=== PATIENT | female | born 1965 | race Caucasian/White ===

== ENCOUNTER 2017-08-05 09:15 | Inpatient (IN) | payer OTHER ==
[2017-08-05 12:10] VITALS: BMI 32.8
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
[2017-08-11] MEDS ORDERED: CEFAZOLIN/Water 2 GM/20 ML SYRINGE ONE (07:08)
[2017-08-11] MEDS ORDERED: Tranexamic Acid 1,000 MG/100 ML BAG ONE ×2 (07:08→13:08)
[2017-08-11] MEDS ORDERED: Vancomycin HCl 1.5 GM in Sodium Chloride 0.9% 250 ML 300 ML IVPB ONE (07:30)
[2017-08-11] MEDS ORDERED: Fentanyl 100 MCG/2 ML VIAL ONE (07:34)
[2017-08-11] MEDS ORDERED: Midazolam HCl 2 mg/2 ml Vial ONE ×2 (07:34→10:36)
[2017-08-11] MEDS ORDERED: HYDROcodone/Acetaminophen 5/325 mg Tablet PO PRN ×2 (08:30)
[2017-08-11] MEDS ORDERED: Fentanyl/Bupivacaine 250 ML in Premix Bag 1 BAG EPIDURAL SCH (08:30)
[2017-08-11] MEDS ORDERED: diphenhydrAMINE 25 MG CAP PO PRN ×2 (08:30→09:51)
[2017-08-11] MEDS ORDERED: Naloxone HCl 0.4 mg/ml Vial IV PRN (08:30)
[2017-08-11] MEDS ORDERED: Promethazine HCl 25 MG/ML VIAL IM PRN ×2 (08:30→11:17)
[2017-08-11] MEDS ORDERED: diphenhydrAMINE 50 MG/ML VIAL IM PRN (08:30)
[2017-08-11] MEDS ORDERED: Naloxone HCl 0.4 mg/ml Vial IVP PRN (08:30)
[2017-08-11] MEDS ORDERED: Bupivacaine 0.25% 10 ML VIAL EPIDURAL PRN (08:30)
[2017-08-11] MEDS ORDERED: Eucerin (Mineral Oil/Petrolatum,White) 30 gm Jar TOP PRN (08:30)
[2017-08-11] MEDS ORDERED: Zolpidem Tartrate 5 MG TAB PO PRN ×2 (08:30→09:51)
[2017-08-11] MEDS ORDERED: Promethazine HCl 25 MG SUPP PR PRN (08:30)
[2017-08-11] MEDS ORDERED: Ondansetron HCl/PF 4 MG/2 ML Vial IVP PRN ×3 (08:30→11:17)
[2017-08-11] MEDS ORDERED: traMADol HCl 50 MG TAB PO PRN ×2 (08:30)
[2017-08-11] MEDS ORDERED: diphenhydrAMINE 50 MG/ML VIAL IVP PRN (08:30)
[2017-08-11] MEDS ORDERED: Acetaminophen 325 MG TAB PO PRN (09:51)
[2017-08-11] MEDS ORDERED: Promethazine HCl 25 MG/ML VIAL SLOW IVP PRN ×2 (09:51→11:17)
[2017-08-11] MEDS ORDERED: Tranexamic Acid 1,000 MG in Sodium Chloride 0.9% 100 ML IVPB SCH ×2 (09:51→12:45)
[2017-08-11] MEDS ORDERED: Ropivacaine 0.2% HCl/PF 20 ML ONE (10:46)
[2017-08-11] MEDS ORDERED: Multivitamin W/ Minerals 1 TAB PO SCH (11:45)
[2017-08-11] MEDS ORDERED: Senokot S 8.6-50 MG TAB PO SCH (12:00)
[2017-08-11] MEDS ORDERED: Thyroid 30 MG TAB PO SCH (12:00)
[2017-08-11] MEDS ORDERED: Liothyronine Sodium 25 MCG TAB PO SCH (12:00)
[2017-08-11] MEDS ORDERED: Calcium Carbonate + Vit D 1 TAB PO SCH (12:00)
[2017-08-11] MEDS ORDERED: Ferrous Gluconate 324 MG TAB PO SCH (12:00)
[2017-08-11] MEDS ORDERED: Meperidine HCl/PF 25 MG/ML VIAL ONE (12:41)
--- NOTE | 2017-08-11 13:20 | OP ---
DATE OF PROCEDURE: 08/11/2017 SURGEON: Karan Doherty M.D. FOUNDRY WORKER GENERAL: Joel Ramirez PA-C. ANESTHESIA: General plus epidural. PREOPERATIVE DIAGNOSIS: Posttraumatic degenerative arthritis, right hip. POSTOPERATIVE DIAGNOSIS: Posttraumatic degenerative arthritis right hip. PROCEDURES: Right total hip replacement with uncemented Kashif Trident PSL acetabular component 52 mm with X3 polyethylene insert and uncemented Kashif Accolade femoral stem size 3.5 with a standard neck length 36 mm Delta ceramic femoral head. NARRATIVE REPORT: After satisfactory anesthesia was induced in supine position, the patient was plac ed in lateral decubitus position and this position held with hip positioning device. Sequential comp ression device was used on the non-operative leg throughout the procedure. The patient was prepped a nd draped in the routine fashion. The hip was approached through a lateral curvilinear incision cent ered over the greater trochanter and carried down through subcutaneous tissues, and bleeding points c ontrolled with Bovie cautery. IT band and gluteal fascia were split in line with the skin incision. Direct lateral approach to the hip joint was accomplished by dividing the anterior third of the glut eus medius minimus tendons with Bovie cautery and reflecting this as a single flap anteriorly and med ially. Anterior capsulectomy was performed and the hip dislocated anteriorly. There was marked dege nerative arthritis of the hip with large areas of exposed bone and partial collapse of femoral head. The femoral neck was osteotomized with an oscillating saw using a trial prosthesis as a guide. Acet abulum was exposed and cleaned of all soft tissue debris and rim osteophytes. The acetabulum was the n reamed down to bleeding subchondral bone in sequence with power reamers down to a total of 52 mm. It was felt that a 52 mm Trident PSL outer shell could be placed in a press fit fashion. The permane nt outer shell was hammered into position. There was good fit and stability of the shell and the per manent X3 polyethylene insert was then snapped into position and the proximal femur exposed. It was opened with a box osteotome and then rasped in sequence to accept an Accolade 3.5 femoral rasp. Tria l reduction with 132 degree neck angle and standard neck length 36 mm head gave appropriate size, fit , and stability. The hip was dislocated anteriorly and the trial components removed. The permanent Accolade 3.5 stem was then hammered in position. There was good fit and stability. The permanent st andard neck length 36 mm Delta ceramic head was then placed on the trunnion and the hip again reduced and found to be stable. The hip was copiously irrigated with pulsatile lavage. The abductors were repaired with interrupted #2 Vicryl. IT band was closed with interrupted #2 Vicryl and a running #2 Quill. Subcutaneous tissue was closed with running 0 Quill suture and the skin closed with running s ubcuticular 2-0 Monoderm and SurgiSeal skin adhesive. A sterile dressing was applied and the patient turned to the supine position and a pillow placed between her legs. Sequential compression device w as applied to her operated leg and she was awakened and taken to recovery room in stable condition. There were no apparent intraoperative complications. The estimated blood loss was 400 mL.
[2017-08-11] MEDS: Sodium Chloride 0.9% 1,000 ML IV SCH (13:41)
[2017-08-11] MEDS: Ketorolac Tromethamine 30 MG/ML VIAL IVP SCH ×3 (14:03→18:28)
[2017-08-11] MEDS ORDERED: FLU VACC QS2017-18 36 mo. & older 0.5 ML SYRINGE IM ONE (14:45)
--- NOTE | 2017-08-11 14:50 | RAD ---
RIGHT HIP TWO PORTABLE VIEWS: History: Post op evaluation. IMPRESSION: Hip prosthesis has been placed. Components appear in adequate position and alignment. POS: [facility]
[2017-08-11] MEDS: CEFAZOLIN/Water 2 GM/20 ML SYRINGE SLOW IVP SCH ×2 (15:22→21:54)
[2017-08-11] MEDS ORDERED: Lidocaine 1% PF 5 ML VIAL ONE (15:46)
[2017-08-11] MEDS ORDERED: Ketorolac Tromethamine 30 MG/ML VIAL ONE (15:46)
[2017-08-11] MEDS ORDERED: PHENYLEPHRINE-NS 100 MCG/ML 10 ML SYRINGE ONE (15:46)
[2017-08-11] MEDS ORDERED: PROPOFOL 200 MG/20 ML VIAL ONE (15:46)
[2017-08-11] MEDS ORDERED: Ondansetron HCl/PF 4 MG/2 ML Vial ONE (15:46)
[2017-08-11] MEDS ORDERED: Vancomycin HCl 1.5 GM in Sodium Chloride 0.9% 250 ML 300 ML IVPB SCH (19:30)
--- NOTE | 2017-08-11 21:32 | PDOC.PN ---
- Subjective Encounter Start Date: 08/11/17 Encounter Start Time: 19:30 Patient seen and examined. Consult for med mngt. Pain controlled. No CP/SOB - Objective MAR Reviewed: Yes Vital Signs & Weight: Vital Signs (12 hours) Temp Pulse Pulse Pulse Pulse Resp BP 08/11/17 19:50 98.8 F 104 H 18 08/11/17 18:22 108 H 98 95 88/57 L 08/11/17 16:30 97.6 F 95 16 08/11/17 14:28 97.9 F 80 18 08/11/17 13:50 97.9 F 80 16 BP BP BP Pulse Ox Pulse Ox Pulse Ox 08/11/17 19:50 95/61 18 L 08/11/17 18:22 103/63 103/65 99 99 08/11/17 16:30 94/65 08/11/17 14:28 08/11/17 13:50 104/72 Weight Weight 210 lb I&O: 08/10/17 08/11/17 08/12/17 06:59 06:59 06:59 Intake Total 550 Output Total 600 Balance -50 Result Diagrams: 08/13/17 05:17 Phys Exam - Physical Examination Constitutional: NAD Neck: no JVD Neurological: non-focal, moves all 4 limbs Psychiatric: normal affect, A&O x 3 Dx/Plan - Plan DVT proph w/SCDs IMPRESSION: 1. Hypothyroidism 2. s/p Gastric bypass 3. Chronic insomnia 4. Obesity BMI 32.9 PLAN: * Cont home thyroid meds * Cont to monitor * Thank you for this consultation. Will follow PRN Review of Systems - Review of Systems Respiratory: negative: Cough, Dry, Shortness of Breath, Hemoptysis, SOB with Excertion, Pleuritic Pain, Sputum, Wheezing Cardiovascular: negative: chest pain, palpitations, orthopnea, paroxysmal nocturnal dyspnea, edema, light headedness Gastrointestinal: negative: Nausea, Vomiting, Abdominal Pain, Diarrhea, Constipation, Melena, Hematochezia - Medications/Allergies Allergies/Adverse Reactions: Allergies Allergy/AdvReac Type Severity Reaction Status Date / Time codeine Allergy Verified 08/11/17 15:43 Medications: Current Medications Acetaminophen (Tylenol) 650 mg PO Q4H PRN PRN Reason: MUSA/ T > 101F; Mild Pain (1-3) Hydrocodone Bitart/Acetaminophen ([place] 10/325) 1 tab PO Q4H PRN PRN Reason: Moderate Pain (4-6) Hydrocodone Bitart/Acetaminophen ([place] 10/325) 2 tab PO Q4H PRN PRN Reason: Severe Pain (7-10) Aspirin (Aspirin Chewable) 81 mg PO BID [facility] Bupivacaine HCl (Marcaine) 5 ml EPIDURAL ONE PRN PRN Reason: UNCONTROLLED PAIN Stop: 08/14/17 08:31 Calcium/Vitamin D (Caltrate 600 + Vit D) 1 tab PO BID [facility] Cefazolin Sodium (Ancef) 2 gm SLOW IVP Q8HR [facility] Stop: 08/11/17 22:01 Last Admin: 08/11/17 15:22 Dose: 2 gm Diphenhydramine HCl (Benadryl) 25 mg PO Q3H PRN PRN Reason: Itching Diphenhydramine HCl (Benadryl) 25 mg IM Q3H PRN PRN Reason: Itching Diphenhydramine HCl (Benadryl) 25 mg IVP Q3H PRN PRN Reason: Itching Diphenhydramine HCl (Benadryl) 25 mg PO Q6H PRN PRN Reason: Itching Fentanyl (Sublimaze) 50 mcg SLOW IVP Q30MIN PRN PRN Reason: Moderate Pain (4-6) Fentanyl (Sublimaze) 100 mcg SLOW IVP Q1H PRN PRN Reason: Severe Pain (7-10) Ferrous Gluconate (Fergon) 324 mg PO BID [facility] Gabapentin (Neurontin) 150 mg PO BID [facility] Fentanyl Citrate 250 ml/ (Device) 250 mls @ 6 mls/hr EPIDURAL INF [facility] Sodium Chloride (Normal Saline 0.9%) 1,000 mls @ 100 mls/hr IV .Q10H [facility] Last Admin: 08/11/17 13:41 Dose: Not Given Iron/Minerals/Multivitamins (Theragran M) 1 tab PO DAILY [facility] Ketorolac Tromethamine (Toradol) 30 mg IVP Q6HR [facility] Stop: 08/13/17 06:01 Last Admin: 08/11/17 18:28 Dose: 30 mg Ketorolac Tromethamine (Toradol) 30 mg IVP Q8HR [facility] Stop: 08/13/17 14:01 Last Admin: 08/11/17 14:04 Dose: Not Given Liothyronine Sodium (Cytomel) 12.5 mcg PO DAILY [facility] Mineral Oil/White Petrolatum (Eucerin Cream) 0 gm TOP PRN PRN PRN Reason: Itching Naloxone HCl (Narcan) 0.2 mg IV Q5MIN PRN PRN Reason: RR <=8 OR OBTUNDED/UNAROUSABLE Naloxone HCl (Narcan) 0.1 mg IVP Q15MIN PRN PRN Reason: URINARY RETENTION Ondansetron HCl (Zofran) 4 mg IVP Q6H PRN PRN Reason: Nausea/Vomiting Ondansetron HCl (Zofran) 4 mg IVP Q6H PRN PRN Reason: Nausea/Vomiting Promethazine HCl (Phenergan) 12.5 mg IM Q4H PRN PRN Reason: Nausea Promethazine HCl (Phenergan Suppository) 25 mg [place] Q4H PRN PRN Reason: Nausea/Vomiting Promethazine HCl (Phenergan) 12.5 mg SLOW IVP Q4H PRN PRN Reason: Nausea/Vomiting Senna/Docusate Sodium (Senokot S) 2 tab PO BID [facility] Sodium Chloride (Flush - Normal Saline) 10 ml IVF PRN PRN PRN Reason: Saline Flush Thyroid ([place] Thyroid) 180 mg PO DAILY [facility] Thyroid ([place] Thyroid) 15 mg PO DAILY [facility] Tramadol HCl (Ultram) 50 mg PO Q6H PRN PRN Reason: Mild Pain 1-3 Tramadol HCl (Ultram) 100 mg PO Q6H PRN PRN Reason: Mild Pain (1-3) Zolpidem Tartrate (Ambien) 5 mg PO HSPRN PRN PRN Reason: Insomnia
[2017-08-11] MEDS: Senokot S 8.6-50 MG TAB PO SCH (21:52)
[2017-08-11] MEDS: Ferrous Gluconate 324 MG TAB PO SCH (21:53)
[2017-08-11] MEDS: Calcium Carbonate + Vit D 1 TAB PO SCH (21:53)
[2017-08-12] MEDS: Ketorolac Tromethamine 30 MG/ML VIAL IVP SCH ×8 (00:23→20:07)
[2017-08-12] MEDS: Sodium Chloride 0.9% 1,000 ML IV SCH ×3 (00:23→07:15)
[2017-08-12] MEDS: HYDROcodone/Acetaminophen 10/325 mg Tablet PO PRN ×3 (00:33→20:42)
[2017-08-12 05:32] LABS: Hemoglobin 9.5 g/dL (12.0-16.0); Mean Corpuscular HGB CONC 33.4 g/dL (32.0-36.0); Mean Corpuscular Hemoglobin 30.5 pg (27.0-31.0); Mean Corpuscular Volume 91.1 fl (81.0-99.0); Mean Platelet Volume 7.1 fL (7.4-10.4); Platelet Count 187 thou/uL (130-400); Red Blood Cell (RBC) Count 3.12 mill/uL (4.20-5.40)
[2017-08-12] MEDS: Liothyronine Sodium 25 MCG TAB PO SCH (06:48)
[2017-08-12] MEDS: Senokot S 8.6-50 MG TAB PO SCH ×2 (08:04→20:42)
[2017-08-12] MEDS: Calcium Carbonate + Vit D 1 TAB PO SCH ×2 (08:05→20:42)
[2017-08-12] MEDS: Multivitamin W/ Minerals 1 TAB PO SCH (08:19)
[2017-08-12] MEDS: Ferrous Gluconate 324 MG TAB PO SCH ×2 (08:19→20:42)
[2017-08-12] MEDS ORDERED: Thyroid 30 MG TAB PO SCH (09:00)
[2017-08-12] MEDS ORDERED: Bupivacaine 10 ML in Sodium Chloride 0.9% 90 ML EPIDURAL SCH (10:45)
[2017-08-12] MEDS ORDERED: Fentanyl 100 MCG/2 ML VIAL SLOW IVP PRN ×2 (23:59)
[2017-08-13] MEDS: Ketorolac Tromethamine 30 MG/ML VIAL IVP SCH ×4 (00:37→12:28)
[2017-08-13] MEDS: Sodium Chloride 0.9% 1,000 ML IV SCH ×3 (02:32→21:08)
[2017-08-13 05:50] LABS: Hemoglobin 8.9 g/dL (12.0-16.0); Mean Corpuscular HGB CONC 33.1 g/dL (32.0-36.0); Mean Corpuscular Hemoglobin 30.5 pg (27.0-31.0); Mean Corpuscular Volume 92.2 fl (81.0-99.0); Mean Platelet Volume 7.3 fL (7.4-10.4); Platelet Count 176 thou/uL (130-400); RBC Distribution Width 11.1 % (11.5-14.5); White Blood Cell (WBC) Count 6.7 thou/uL (4.8-10.8)
[2017-08-13] MEDS: Liothyronine Sodium 25 MCG TAB PO SCH (06:08)
[2017-08-13] MEDS: Thyroid 30 MG TAB PO SCH (06:13)
[2017-08-13] MEDS: HYDROcodone/Acetaminophen 10/325 mg Tablet PO PRN ×2 (08:13→16:47)
[2017-08-13] MEDS: Multivitamin W/ Minerals 1 TAB PO SCH (08:14)
[2017-08-13] MEDS: Calcium Carbonate + Vit D 1 TAB PO SCH ×2 (08:14→19:59)
[2017-08-13] MEDS: Senokot S 8.6-50 MG TAB PO SCH ×2 (08:14→20:00)
[2017-08-13] MEDS: Ferrous Gluconate 324 MG TAB PO SCH ×2 (08:14→20:00)
[2017-08-13] MEDS: traMADol HCl 50 MG TAB PO PRN ×2 (12:38→19:52)
[2017-08-13] MEDS ORDERED: Magnesium Citrate 300 ML BOT PO SCH (13:30)
[2017-08-13] MEDS: Ondansetron ODT 4 MG TAB PO PRN (14:27)
[2017-08-13] MEDS ORDERED: Bisacodyl 10 MG SUPP PR SCH (17:15)
[2017-08-13] MEDS: GABAPENTIN 150 MG PO SCH ×3 (17:34→17:36)
[2017-08-14] MEDS: Thyroid 30 MG TAB PO SCH (05:21)
[2017-08-14] MEDS: HYDROcodone/Acetaminophen 10/325 mg Tablet PO PRN ×2 (05:43→22:17)
[2017-08-14] MEDS: Ondansetron ODT 4 MG TAB PO PRN ×2 (06:51→12:34)
[2017-08-14] MEDS: Sodium Chloride 0.9% 1,000 ML IV SCH ×2 (07:10→17:05)
[2017-08-14] MEDS: Calcium Carbonate + Vit D 1 TAB PO SCH ×2 (09:13→20:41)
[2017-08-14] MEDS: Ferrous Gluconate 324 MG TAB PO SCH ×2 (09:13→20:41)
[2017-08-14] MEDS: Liothyronine Sodium 25 MCG TAB PO SCH (09:13)
[2017-08-14] MEDS: Senokot S 8.6-50 MG TAB PO SCH ×2 (09:14→20:41)
[2017-08-14] MEDS: Multivitamin W/ Minerals 1 TAB PO SCH (09:14)
[2017-08-14] MEDS: traMADol HCl 50 MG TAB PO PRN (12:36)
[2017-08-14] MEDS ORDERED: Milk Of Magnesia 30 ML UDCUP PO PRN (12:48)
[2017-08-14] MEDS ORDERED: Polyethylene Glycol 3350 17 GM Packet PO PRN (12:48)
--- NOTE | 2017-08-14 17:03 | PDOC.PN ---
- Subjective Encounter Start Date: 08/14/17 Encounter Start Time: 17:01 Patient seen and examined. Pain controlled. Constipated. No overnight events - Objective MAR Reviewed: Yes Vital Signs & Weight: Vital Signs (12 hours) Temp Pulse Resp BP BP Pulse Ox 08/14/17 16:36 98.6 F 99 14 134/88 94 L 08/14/17 12:00 96 08/14/17 11:44 98.7 F 95 14 111/68 96 08/14/17 08:00 98.4 F 98 18 92 L 08/14/17 07:40 98.4 F 98 18 119/75 92 L Weight Admit Weight 210 lb Weight 210 lb I&O: 08/13/17 08/14/17 08/15/17 06:59 06:59 06:59 Intake Total 700 1520 Output Total 1600 300 Balance -900 1220 Result Diagrams: 08/13/17 05:17 Phys Exam - Physical Examination Constitutional: NAD Respiratory: no wheezing, no rhonchi Cardiovascular: RRR, no rub Gastrointestinal: soft, non-tender, no distention, positive bowel sounds Musculoskeletal: no edema Neurological: moves all 4 limbs Psychiatric: A&O x 3 Dx/Plan - Plan DVT proph w/SCDs IMPRESSION: 1. Hypothyroidism 2. s/p Gastric bypass 3. Chronic insomnia 4. Obesity BMI 32.9 5. Constipation 6. Chronic Anemia PLAN: * Patient received Mag Citrate yesterday and MOM/Lactulose today * Cont home thyroid meds * Cont to monitor * Will follow PRN Review of Systems - Review of Systems Respiratory: negative: Cough, Dry, Shortness of Breath, Hemoptysis, SOB with Excertion, Pleuritic Pain, Sputum, Wheezing Cardiovascular: negative: chest pain, palpitations, orthopnea, paroxysmal nocturnal dyspnea, edema, light headedness Gastrointestinal: Constipation. negative: Nausea, Vomiting, Abdominal Pain, Diarrhea, Melena, Hematochezia - Medications/Allergies Allergies/Adverse Reactions: Allergies Allergy/AdvReac Type Severity Reaction Status Date / Time codeine Allergy Verified 08/11/17 15:43 Medications: Current Medications Acetaminophen (Tylenol) 650 mg PO Q4H PRN PRN Reason: MUSA/ T > 101F; Mild Pain (1-3) Last Admin: 08/14/17 12:36 Dose: 650 mg Hydrocodone Bitart/Acetaminophen ([place] 10/325) 1 tab PO Q4H PRN PRN Reason: Moderate Pain (4-6) Last Admin: 08/13/17 16:47 Dose: 1 tab Hydrocodone Bitart/Acetaminophen ([place] 10/325) 2 tab PO Q4H PRN PRN Reason: Severe Pain (7-10) Last Admin: 08/14/17 05:43 Dose: 2 tab Aspirin (Aspirin Chewable) 81 mg PO BID [facility] Last Admin: 08/14/17 09:12 Dose: 81 mg Calcium/Vitamin D (Caltrate 600 + Vit D) 1 tab PO BID [facility] Last Admin: 08/14/17 09:13 Dose: 1 tab Diphenhydramine HCl (Benadryl) 25 mg PO Q3H PRN PRN Reason: Itching Diphenhydramine HCl (Benadryl) 25 mg IM Q3H PRN PRN Reason: Itching Diphenhydramine HCl (Benadryl) 25 mg IVP Q3H PRN PRN Reason: Itching Diphenhydramine HCl (Benadryl) 25 mg PO Q6H PRN PRN Reason: Itching Fentanyl (Sublimaze) 50 mcg SLOW IVP Q30MIN PRN PRN Reason: Moderate Pain (4-6) Fentanyl (Sublimaze) 100 mcg SLOW IVP Q1H PRN PRN Reason: Severe Pain (7-10) Ferrous Gluconate (Fergon) 324 mg PO BID [facility] Last Admin: 08/14/17 09:13 Dose: 324 mg Sodium Chloride (Normal Saline 0.9%) 1,000 mls @ 100 mls/hr IV .Q10H [facility] Last Admin: 08/14/17 07:10 Dose: Not Given Bupivacaine HCl 10 ml/ Sodium (Chloride) 100 mls @ 0 mls/hr EPIDURAL INF [facility] PRN Reason: Protocol Last Admin: 08/13/17 05:59 Dose: 100 mls Iron/Minerals/Multivitamins (Theragran M) 1 tab PO DAILY [facility] Last Admin: 08/14/17 09:14 Dose: 1 tab Liothyronine Sodium (Cytomel) 12.5 mcg PO DAILY [facility] Last Admin: 08/14/17 09:13 Dose: 12.5 mcg Magnesium Hydroxide (Milk Of Magnesium) 30 ml PO PRN PRN PRN Reason: Constipation Last Admin: 08/14/17 12:57 Dose: 30 ml Mineral Oil/White Petrolatum (Eucerin Cream) 0 gm TOP PRN PRN PRN Reason: Itching Naloxone HCl (Narcan) 0.2 mg IV Q5MIN PRN PRN Reason: RR <=8 OR OBTUNDED/UNAROUSABLE Naloxone HCl (Narcan) 0.1 mg IVP Q15MIN PRN PRN Reason: URINARY RETENTION Ondansetron HCl (Zofran) 4 mg IVP Q6H PRN PRN Reason: Nausea/Vomiting Last Admin: 08/12/17 06:46 Dose: 4 mg Ondansetron HCl (Zofran) 4 mg IVP Q6H PRN PRN Reason: Nausea/Vomiting Ondansetron HCl (Zofran Odt) 4 mg PO Q6H PRN PRN Reason: Nausea/Vomiting Last Admin: 08/14/17 12:34 Dose: 4 mg Polyethylene Glycol (Miralax) 17 gm PO PRN PRN PRN Reason: CONSTIPATION Last Admin: 08/14/17 12:57 Dose: 17 gm Promethazine HCl (Phenergan) 12.5 mg IM Q4H PRN PRN Reason: Nausea Promethazine HCl (Phenergan Suppository) 25 mg [place] Q4H PRN PRN Reason: Nausea/Vomiting Promethazine HCl (Phenergan) 12.5 mg SLOW IVP Q4H PRN PRN Reason: Nausea/Vomiting Senna/Docusate Sodium (Senokot S) 2 tab PO BID [facility] Last Admin: 08/14/17 09:14 Dose: 2 tab Sodium Chloride (Flush - Normal Saline) 10 ml IVF PRN PRN PRN Reason: Saline Flush Thyroid ([place] Thyroid) 180 mg PO 0600 [facility] Last Admin: 08/14/17 05:21 Dose: 180 mg Thyroid ([place] Thyroid) 15 mg PO 0600 [facility] Last Admin: 08/14/17 05:21 Dose: 15 mg Tramadol HCl (Ultram) 50 mg PO Q6H PRN PRN Reason: Mild Pain 1-3 Last Admin: 08/11/17 21:53 Dose: 50 mg Tramadol HCl (Ultram) 100 mg PO Q6H PRN PRN Reason: Mild Pain (1-3) Last Admin: 08/14/17 12:36 Dose: 100 mg Zolpidem Tartrate (Ambien) 5 mg PO HSPRN PRN PRN Reason: Insomnia Last Admin: 08/13/17 23:05 Dose: 5 mg
[2017-08-15] MEDS: Sodium Chloride 0.9% 1,000 ML IV SCH (04:58)
[2017-08-15] MEDS: Thyroid 30 MG TAB PO SCH (06:04)
[2017-08-15] MEDS: Calcium Carbonate + Vit D 1 TAB PO SCH (08:36)
[2017-08-15] MEDS: Multivitamin W/ Minerals 1 TAB PO SCH (08:36)
[2017-08-15] MEDS: Senokot S 8.6-50 MG TAB PO SCH (08:40)
[2017-08-15] MEDS: Ferrous Gluconate 324 MG TAB PO SCH (08:41)
[2017-08-15] MEDS: Liothyronine Sodium 25 MCG TAB PO SCH (08:42)
[2017-08-15] MEDS: traMADol HCl 50 MG TAB PO PRN (08:43)
[2017-08-15] MEDS: Ondansetron ODT 4 MG TAB PO PRN ×2 (09:17→15:36)
[2017-08-15] MEDS ORDERED: Ondansetron ORAL SOLN. 4 MG/5 ML UDCUP PO PRN (09:25)
[2017-08-15] MEDS ORDERED: traMADol HCl 50 MG TAB PO PRN ×2 (09:26)
[2017-08-15 15:34] VITALS: BP 131/85; TEMP 98.4
--- NOTE | 2017-08-18 09:33 | DIS ---
DATE OF ADMISSION: 08/11/2017 DATE OF DISCHARGE: 08/15/2017 DISCHARGE DISPOSITION: To inpatient rehabilitation. ADMISSION DIAGNOSIS: End-stage bicompartmental osteoarthritis, right hip. DISCHARGE DIAGNOSES: End-stage bicompartmental osteoarthritis, right hip. OPERATIVE PROCEDURE: Right total hip arthroplasty. CONSULTANTS: [facility] for acute postop pain management [facility]. BRIEF CLINICAL HISTORY: Mayra is a 51-year-old white female who was admitted to [facility] and underwent the above elective procedure on date of admission without intra, anel, or postoperative complication. She was a little delayed at reaching independence and activities of daily living. Therefore, it was elected to send her to inpatient rehabilitation for continued effort s. At the time of transfer, she is afebrile, ambulatory with assistance of 1, tolerating a regular d iet, and voiding. Her incision is clean and closed without any erythema or discharge. She is neurov ascularly intact in the involved extremity. DISCHARGE MEDICATIONS: Please see medication reconciliation form. We will be happy to see the patient on an as needed basis between now and her next scheduled appointm ent in 2-3 weeks. CONDITION ON TRANSFER: Stable. PROGNOSIS: To be determined.
== END 2017-08-15 17:09 | DRG 470 ==
LOC: SURG A 08-11 06:25 → SJJU 08-11 14:09
PROVIDERS: ADMIT Orthopaedic Surgery; ATTEND Orthopaedic Surgery
PROC: 0SR904A Replacement of Right Hip Joint with Ceramic on Polyethylene Synthetic Substitute, Uncemented, Open Approach (ICD-10-PCS; principal; 2017-08-11)
PROC: 3E0T3BZ Introduction of Anesthetic Agent into Peripheral Nerves and Plexi, Percutaneous Approach (ICD-10-PCS; 2017-08-11)
DX: M16.11 Unilateral primary osteoarthritis, right hip (principal); E66.9 Obesity, unspecified; D64.9 Anemia, unspecified; I10 Essential (primary) hypertension; M16.51 Unilateral post-traumatic osteoarthritis, right hip; T14.90XS Injury, unspecified, sequela; Y09 Assault by unspecified means; Z98.84 Bariatric surgery status; E03.9 Hypothyroidism, unspecified; F51.04 Psychophysiologic insomnia; Z68.32 Body mass index [BMI] 32.0-32.9, adult; K59.00 Constipation, unspecified
CPT/HCPCS: 36415; 85027; 90471; 90682; G0008; G8978-GP-CL; G8979-GP-CI; G8987-GO-CK; G8988-GO-CI; J1885; J2001; J2175; J2250; J2405; J2704; J2795; J3010; J3370; J3490; J7050; Q0162; Q2036

== ENCOUNTER 2017-08-05 09:19 | Outpatient (CLI) | payer OTHER ==
[2017-08-05 11:17] LABS: Hemoglobin 14.7 g/dL (12.0-16.0); Mean Corpuscular HGB CONC 35.9 g/dL (32.0-36.0); Mean Corpuscular Hemoglobin 32.5 pg (27.0-31.0); Mean Corpuscular Volume 90.3 fl (81.0-99.0); Mean Platelet Volume 7.6 fL (7.4-10.4); Platelet Count 292 thou/uL (130-400); RBC Distribution Width 11.1 % (11.5-14.5); Red Blood Cell (RBC) Count 4.53 mill/uL (4.20-5.40); White Blood Cell (WBC) Count 5.9 thou/uL (4.8-10.8)
[2017-08-05 11:20] LABS: Bilirubin Negative (Negative); Blood, Urine Negative (Negative); Clarity CLOUDY (Clear); Glucose, Urine (Dipstick) Negative (Negative); Leukocyte Negative (Negative); Nitrite Negative (Negative); Protein, Urine (Dipstick) Negative (Neg-Trace); Specific Gravity, Urine 1.023 (1.002-1.036); Urobilinogen 0.2 mg/dL (0.2-1.0)
[2017-08-05 11:22] LABS: Prothrombin Time 13.4 SEC (12.0-14.7)
[2017-08-05 11:23] LABS: Bacteria/HPF None Seen HPF (None Seen); Hyaline Casts/LPF 0-3 HYALINE CAST LPF (0-3 Hyaline); Pathc Cast-AUWi Flag 0.13 (0-2.49); Squamous Epithelial None Seen HPF (0-3); WBC/HPF 0-3 HPF (0-3)
[2017-08-05 11:26] LABS: Anion Gap 14 mmol/L (10-20); BUN (Urea Nitrogen) 18 mg/dL (9.8-20.1); Calc. Creatinine Clearance 0 mL/min (70-130); Calcium 9.9 mg/dL (7.8-10.44); Carbon Dioxide 26 mmol/L (22-29); Chloride 104 mmol/L (98-107); Estimated GFR-MDRD 88; Glucose 100 mg/dL (70-105); Potassium 4.3 mmol/L (3.5-5.1); Sodium 140 mmol/L (136-145)
[2017-08-05 11:39] LABS: Crystals/HPF 3+ CA OXALATE HPF (Negative)
--- NOTE | 2017-08-07 00:48 | EKG ---
Test Reason : Blood Pressure : / mmHG Vent. Rate : 091 BPM Atrial Rate : 091 BPM P-R Int : 150 ms QRS Dur : 086 ms QT Int : 360 ms P-R-T Axes : 041 021 037 degrees QTc Int : 442 ms Normal sinus rhythm Normal ECG When compared with ECG of 13-JAN-2014 07:13, Vent. rate has increased BY 30 BPM Confirmed by ZACK GIBBS, DR. Jerome ([id number]) on 08/07/2017 12:48:09 AM Referred By: ASAD Confirmed By:DR. Queenie DIXON MD
== END 2017-08-05 09:20 | disposition home or self-care (01) ==
LOC: LABBT 09:19
PROVIDERS: ATTEND Orthopaedic Surgery
DX: Z01.818 Encounter for other preprocedural examination (principal); M16.11 Unilateral primary osteoarthritis, right hip
CPT/HCPCS: 80048; 81001; 85027; 85610; 86850; 86900; 86901; 87081; 87086; 93005; 93010

== ENCOUNTER 2018-04-02 16:39 | Outpatient (CLI) | payer OTHER | END 2018-04-02 16:40 | disposition home or self-care (01) | LOC: BICRAD 16:39 | PROVIDERS: ATTEND Internal Medicine | DX: J40 Bronchitis, not specified as acute or chronic (principal); I70.0 Atherosclerosis of aorta | CPT/HCPCS: 71046 ==

== ENCOUNTER 2018-05-25 13:42 | Outpatient (CLI) | payer OTHER ==
[2018-05-25 14:55] LABS: #Basophils 0.1 thou/uL (0.0-0.2); #Eosinphils 0.1 thou/uL (0.0-0.7); #Lymphocytes 2.2 thou/uL (1.20-3.40); #Monocytes 0.4 thou/uL (0.11-0.59); #Neutrophils 3.7 thou/uL (1.40-6.50); %Basophils 1.2 % (0.0-1.0); %Eosinophils 1.7 % (0.0-10.0); %Lymphocytes 33.2 % (21.0-51.0); %Monocytes 6.7 % (0.0-10.0); %Neutrophils 57.1 % (42.0-75.0); Hemoglobin 13.8 g/dL (12.0-16.0); Mean Corpuscular HGB CONC 33.4 g/dL (32.0-36.0); Mean Corpuscular Hemoglobin 30.8 pg (27.0-31.0); Mean Corpuscular Volume 92.1 fL (78.0-98.0); Mean Platelet Volume 6.8 fL (7.4-10.4); Platelet Count 320 thou/uL (130-400); RBC Distribution Width 12.9 % (11.5-14.5); Red Blood Cell (RBC) Count 4.47 mill/uL (4.20-5.40); White Blood Cell (WBC) Count 6.5 thou/uL (4.8-10.8)
[2018-05-25 15:02] LABS: INR-International Normal Ratio 0.9; PTT 30.6 SEC (22.9-36.1); Prothrombin Time 12.7 SEC (12.0-14.7)
[2018-05-25 15:12] LABS: Bilirubin Negative (Negative); Blood, Urine Negative (Negative); Clarity CLEAR (Clear); Glucose, Urine (Dipstick) Negative (Negative); Leukocyte Negative (Negative); Nitrite Negative (Negative); Protein, Urine (Dipstick) Negative (Neg-Trace); Specific Gravity, Urine 1.019 (1.002-1.036); Urobilinogen 0.2 mg/dL (0.2-1.0)
[2018-05-25 15:15] LABS: Anion Gap 11 mmol/L (10-20); BUN (Urea Nitrogen) 25 mg/dL (9.8-20.1); Bacteria/HPF None Seen HPF (None Seen); Calc. Creatinine Clearance 0 mL/min (70-130); Calcium 9.8 mg/dL (7.8-10.44); Carbon Dioxide 27 mmol/L (22-29); Chloride 106 mmol/L (98-107); Estimated GFR-MDRD 63; Glucose 114 mg/dL (70-105); Hyaline Casts/LPF 0-3 HYALINE CAST LPF (0-3 Hyaline); Potassium 4.1 mmol/L (3.5-5.1); RBC/HPF 0-3 HPF (0-3); Sodium 140 mmol/L (136-145); Squamous Epithelial None Seen HPF (0-3); WBC/HPF None Seen HPF (0-3)
--- NOTE | 2018-05-25 17:01 | EKG ---
Test Reason : Blood Pressure : / mmHG Vent. Rate : 074 BPM Atrial Rate : 074 BPM P-R Int : 170 ms QRS Dur : 090 ms QT Int : 384 ms P-R-T Axes : 051 021 016 degrees QTc Int : 426 ms Normal sinus rhythm Normal ECG When compared with ECG of 05-AUG-2017 09:53, No significant change was found Confirmed by DR. Justin KEMP ([id number]) on 05/25/2018 5:00:56 PM Referred By: ASAD Confirmed By:DR. Justin KEMP
== END 2018-05-25 13:43 | disposition home or self-care (01) ==
LOC: LABBT 13:42
PROVIDERS: ATTEND Orthopaedic Surgery
DX: Z01.818 Encounter for other preprocedural examination (principal); M16.12 Unilateral primary osteoarthritis, left hip
CPT/HCPCS: 80048; 81001; 85025; 85610; 85730; 86850; 86900; 86901; 87086; 93005; 93010

== ENCOUNTER 2018-06-01 05:34 | Inpatient (IN) | payer OTHER ==
--- NOTE | 2018-05-28 12:59 | HP ---
DATE OF ADMISSION: 06/01/2018 HISTORY OF PRESENT ILLNESS: The patient is a 52-year-old female with a long history of progressive p roblems with her left hip. She has had no specific injury, but her symptoms have become worse over t he past year after recovering from a previous right total hip replacement in July of this year and favoring her right leg. She has had progressive left hip pain despite rest, restriction of activiti es, anti-inflammatory medications and lifestyle adjustments. The pain is now interfering with day-to -day activities including walking, getting dressed and sleeping. PAST MEDICAL HISTORY: As noted above. The patient has had right total hip replacement in July of this year with good results. These symptoms became worse after on the job injury. She still has so me pain, which is controlled with gabapentin. She does have a history of previous gastric sleeve alejandro abdirashid and hysterectomy. CURRENT MEDICATIONS: Include multivitamins, Cymbalta and gabapentin. ALLERGIES: She is allergic to LATEX and CODEINE. She has no problems with hydrocodone. FAMILY HISTORY: Otherwise unremarkable. SOCIAL HISTORY: Otherwise unremarkable. REVIEW OF SYSTEMS: Otherwise unremarkable. The patient was previously employed as a precinct police sergeant, but unable to return to work since her injur y to her right hip. PHYSICAL EXAMINATION: GENERAL: Reveals a healthy heavyset female. HEENT: Unremarkable. NECK: Supple. CHEST: Clear. HEART: Regular rate and rhythm. ABDOMEN: Soft, nontender. PELVIC/RECTAL/BREAST: Exams are deferred. EXTREMITIES: Pertinent findings of the left hip, left leg is 1 cm short. There is tenderness in the anterior groin. There is a left antalgic gait. There is decreased range of motion of the left hip and groin pain with internal rotation. Neurovascular exam is intact. LABORATORY AND X-RAY FINDINGS: X-rays of the left hip reveal severe degenerative arthritis with esse ntially no joint space remaining. IMPRESSION: 1. Degenerative arthritis, left hip. 2. Status post right total hip replacement. PLAN: Left total hip replacement. The nature of the surgery, length of recovery and potential compl ications such as infection, loss of motion, incomplete relief, neurovascular injury, thromboembolic p henomenon, leg length discrepancy, possible transfusion and need for revision have been discussed in detail.
[2018-06-01] MEDS ORDERED: Vancomycin HCl 1.5 GM in Sodium Chloride 0.9% 250 ML 300 ML IVPB SCH ×2 (06:00→18:00)
[2018-06-01] MEDS ORDERED: Midazolam HCl 2 mg/2 ml Vial ONE (06:21)
[2018-06-01] MEDS ORDERED: Fentanyl 100 MCG/2 ML VIAL ONE (06:21)
[2018-06-01] MEDS ORDERED: CEFAZOLIN 2 GM/50 ML BAG ONE (06:22)
[2018-06-01] MEDS ORDERED: Sodium Chloride 0.9% 100 ML ONE (06:22)
[2018-06-01] MEDS ORDERED: Bupivacaine HCl 0.5%/Epinephrine 1:200,000/PF 30 ml Vial ONE (07:14)
[2018-06-01] MEDS ORDERED: HYDROcodone/Acetaminophen 10/325 mg Tablet PO PRN ×3 (07:25→10:49)
[2018-06-01] MEDS ORDERED: traMADol HCl 50 MG TAB PO PRN ×3 (07:30→10:49)
[2018-06-01] MEDS ORDERED: Fentanyl/Bupivacaine 100 ML EPIDURAL SCH (07:30)
[2018-06-01] MEDS ORDERED: Naloxone HCl 0.4 mg/ml Vial IVP PRN (07:30)
[2018-06-01] MEDS ORDERED: Hydrocerin (Eucerin) Cream 120 gm Jar TOP PRN (07:30)
[2018-06-01] MEDS ORDERED: Ondansetron PF 4 MG/2 ML Vial IVP PRN ×2 (07:30→10:49)
[2018-06-01] MEDS ORDERED: Promethazine HCl 25 MG SUPP PR PRN (07:30)
[2018-06-01] MEDS ORDERED: diphenhydrAMINE 25 MG CAP PO PRN ×2 (07:30→10:49)
[2018-06-01] MEDS ORDERED: Promethazine HCl 25 MG/ML VIAL IM PRN ×2 (07:30→08:37)
[2018-06-01] MEDS ORDERED: diphenhydrAMINE 50 MG/ML VIAL IVP PRN (07:30)
[2018-06-01] MEDS ORDERED: Zolpidem Tartrate 5 MG TAB PO PRN ×2 (07:30→10:49)
[2018-06-01] MEDS ORDERED: diphenhydrAMINE 50 MG/ML VIAL IM PRN (07:30)
[2018-06-01] MEDS ORDERED: Naloxone HCl 0.4 mg/ml Vial IV PRN (07:30)
[2018-06-01] MEDS ORDERED: Bupivacaine 0.25% 10 ML VIAL EPIDURAL PRN (07:30)
[2018-06-01] MEDS ORDERED: Promethazine HCl 25 MG/ML VIAL SLOW IVP PRN ×2 (08:37→10:49)
[2018-06-01] MEDS ORDERED: Ondansetron HCl/PF 4 MG/2 ML Vial IVP PRN (08:37)
[2018-06-01] MEDS ORDERED: Tranexamic Acid 1,000 MG in Sodium Chloride 0.9% 100 ML IVPB SCH ×2 (09:30→10:49)
[2018-06-01] MEDS ORDERED: Fentanyl/Bupivacaine 100 ML EPIDURAL ONE (09:54)
--- NOTE | 2018-06-01 10:19 | RAD ---
TWO VIEWS LEFT HIP: History: Status post left hip arthroplasty. Comparison: None. FINDINGS: Two views of the left hip shows the patient to be status post left arthroplasty without perihardware lucency or fracture. There is overlying air, consistent with recent surgery. IMPRESSION: Status post left hip arthroplasty without evidence of complication. POS: [facility]
--- NOTE | 2018-06-01 10:20 | OP ---
DATE OF PROCEDURE: 06/01/2018 SURGEON: Karan Doherty M.D. TAPE TRANSFERRER: Clementine Maya PA-C. ANESTHESIA: General plus epidural. PREOPERATIVE DIAGNOSIS: Degenerative arthritis, left hip. POSTOPERATIVE DIAGNOSIS: Degenerative arthritis, left hip. PROCEDURES PERFORMED: Left total hip replacement with uncemented Kashif Trident PSL acetabular component 54 mm with X3 polyethylene liner and uncemented Hampton Accolade femoral stem #3 with 132 degree neck angle and 36 mm standard neck length Delta ceramic head. NARRATIVE REPORT: After satisfactory anesthesia was induced in supine position , the patient was placed in lateral decubitus position, this position held with hip positioning device. Sequential compression device was used on the non- operative leg throughout the procedure. The patient's left hip was then prepped and draped in a routine sterile fashion. The hip was approached through a lateral curvilinear incision centered over the greater trochanter and carried down through the subcutaneous tissues, and bleeding points controlled with Bovie cautery. IT band and gluteal fascia were split in line with skin incision. Direct lateral approach to the hip joint was accomplished by dividing the anterior third of the gluteus medius and minimus tendons with Bovie cautery and reflecting this as a single flap anteriorly and medially along with the vastus lateralis. Anterior capsulectomy was performed. Hip dislocated anteriorly. There was marked degenerative arthritis of the hip with large areas of exposed bone. The femoral neck was osteotomized with an oscillating saw using trial prosthesis as a guide. Acetabulum was exposed and cleaned of all soft tissue and debris and then reamed in sequence down to bleeding subchondral bone to a total of 54 mm. It was felt that a 54 mm Trident PSL outer shell could be placed in a press fit fashion. The permanent component was then hammered in position. There was good fit and stability of the outer rim of the outer shell and the permanent X3 polyethylene liner was snapped into position. The proximal femur was then exposed and opened with a box osteotome, then rasped in sequence to accept a #3 Accolade femoral rasp. Trial reduction with 132 degree neck angle trunnion and the 36 mm standard neck length femoral head gave appropriate size, fit, stability, and leg length. Hip was dislocated and the trial components removed. The permanent #3 Accolade femoral stem was then hammered in position. There was again good fit and stability of the stem and the permanent standard neck length 36 mm Delta ceramic head was then placed on the trunnion and the hip reduced. It was again found to be stable. The hip was copiously irrigated with pulsatile lavage. The abductors were then repaired with interrupted #2 Vicryl. IT band and gluteal fascia were closed with interrupted #2 Vicryl and a running #2 Quill. Subcutaneous tissues were closed with interrupted #2 Vicryl, and a running 0 Quill. The skin was closed with running subcuticular 3-0 Monoderm and SurgiSeal skin adhesive. Sterile dressing was applied. The patient turned to the supine position and a pillow placed between her legs and sequential compression device placed on the operated leg. She was awakened, taken to recovery room in stable condition. There were no apparent intraoperative complications. The estimated blood loss was 250 mL. MTDD
[2018-06-01] MEDS ORDERED: CALCIUM CITRATE PO SCH (10:49)
[2018-06-01] MEDS ORDERED: Acetaminophen 325 MG TAB PO PRN (10:49)
[2018-06-01] MEDS ORDERED: Fentanyl 100 MCG/2 ML VIAL SLOW IVP PRN ×2 (10:49)
[2018-06-01] MEDS ORDERED: Multivitamin W/ Minerals 1 TAB PO SCH ×2 (10:49→11:45)
[2018-06-01] MEDS ORDERED: Ferrous Gluconate 324 MG TAB PO SCH ×2 (10:49→11:45)
[2018-06-01] MEDS ORDERED: [UNRECOGNIZED DRUG - OTHER] PO SCH (10:49)
[2018-06-01] MEDS ORDERED: DULoxetine 60 MG CAP PO SCH ×2 (10:49→11:45)
[2018-06-01] MEDS ORDERED: Aspirin 81 mg Enteric Coated Tablet PO SCH ×2 (10:49→11:45)
[2018-06-01] MEDS ORDERED: Gabapentin 300 MG CAP PO SCH ×2 (10:49→11:45)
[2018-06-01] MEDS ORDERED: CEFAZOLIN/Water 2 GM/20 ML SYRINGE SLOW IVP SCH (10:49)
[2018-06-01] MEDS ORDERED: VITAMIN D3 PO SCH (10:49)
[2018-06-01] MEDS ORDERED: Senokot S 8.6-50 MG TAB PO SCH ×2 (10:49→11:45)
[2018-06-01 11:16] VITALS: BMI 39.2
[2018-06-01] MEDS ORDERED: Calcium Carbonate + Vit D 1 TAB PO SCH (11:45)
[2018-06-01] MEDS: HYDROcodone/Acetaminophen 10/325 mg Tablet PO PRN ×2 (11:53→18:34)
[2018-06-01] MEDS: Sodium Chloride 0.9% 1,000 ML IV SCH ×3 (14:18→20:37)
[2018-06-01] MEDS: Ketorolac Tromethamine 30 MG/ML VIAL IVP SCH ×5 (14:19→23:37)
[2018-06-01] MEDS ORDERED: PHENYLEPHRINE-NS 100 MCG/ML 10 ML SYRINGE ONE (15:06)
[2018-06-01] MEDS ORDERED: ePHEDrine/0.9% NaCl/PF SYRINGE 50 mg/10 ml ONE (15:06)
[2018-06-01] MEDS ORDERED: Ketorolac Tromethamine 30 MG/ML VIAL ONE (15:06)
[2018-06-01] MEDS ORDERED: PROPOFOL 200 MG/20 ML VIAL ONE (15:06)
[2018-06-01] MEDS ORDERED: Lidocaine 1% PF 5 ML VIAL ONE (15:06)
[2018-06-01] MEDS ORDERED: Glycopyrrolate 0.2 MG/ML 5 ML SYRINGE ONE (15:06)
[2018-06-01] MEDS: CEFAZOLIN 2 GM/50 ML-DEXTROSE 2 GM in Premix Bag 1 BAG IVPB SCH ×2 (15:22→21:05)
[2018-06-01] MEDS: Gabapentin 300 MG CAP PO SCH ×2 (17:06→21:06)
[2018-06-01] MEDS: Senokot S 8.6-50 MG TAB PO SCH (21:05)
[2018-06-01] MEDS: Aspirin 81 mg Enteric Coated Tablet PO SCH (21:06)
[2018-06-01] MEDS: Calcium Carbonate + Vit D 1 TAB PO SCH (21:06)
[2018-06-01] MEDS: Ferrous Gluconate 324 MG TAB PO SCH (21:06)
[2018-06-02] MEDS: HYDROcodone/Acetaminophen 10/325 mg Tablet PO PRN ×3 (02:50→21:50)
[2018-06-02 05:22] LABS: Hemoglobin 11.1 g/dL (12.0-16.0); Mean Corpuscular HGB CONC 32.9 g/dL (32.0-36.0); Mean Corpuscular Hemoglobin 30.5 pg (27.0-31.0); Mean Corpuscular Volume 92.8 fL (78.0-98.0); Platelet Count 254 thou/uL (130-400); RBC Distribution Width 12.6 % (11.5-14.5); Red Blood Cell (RBC) Count 3.63 mill/uL (4.20-5.40); White Blood Cell (WBC) Count 7.4 thou/uL (4.8-10.8)
[2018-06-02] MEDS: Ketorolac Tromethamine 30 MG/ML VIAL IVP SCH ×7 (05:25→23:53)
[2018-06-02] MEDS: Sodium Chloride 0.9% 1,000 ML IV SCH ×2 (05:56→17:55)
[2018-06-02] MEDS: Aspirin 81 mg Enteric Coated Tablet PO SCH ×2 (07:52→21:42)
[2018-06-02] MEDS: Senokot S 8.6-50 MG TAB PO SCH ×2 (07:52→21:42)
[2018-06-02] MEDS: Multivitamin W/ Minerals 1 TAB PO SCH (07:52)
[2018-06-02] MEDS: Ferrous Gluconate 324 MG TAB PO SCH ×2 (07:53→21:41)
[2018-06-02] MEDS: DULoxetine 60 MG CAP PO SCH (07:53)
[2018-06-02] MEDS: Calcium Carbonate + Vit D 1 TAB PO SCH ×2 (07:53→21:42)
[2018-06-02] MEDS: Gabapentin 300 MG CAP PO SCH ×3 (07:53→21:42)
[2018-06-02] MEDS ORDERED: LISDEXAMFETAMINE DIMESYLATE 30 MG PO SCH (09:00)
[2018-06-02] MEDS: Scopolamine 1.5 mg/72 hour Patch TOP SCH (12:53)
[2018-06-02] MEDS: Bupivacaine 10 ML in Sodium Chloride 0.9% 90 ML EPIDURAL SCH (12:55)
[2018-06-03] MEDS: Bupivacaine 10 ML in Sodium Chloride 0.9% 90 ML EPIDURAL SCH (02:19)
[2018-06-03] MEDS: Sodium Chloride 0.9% 1,000 ML IV SCH ×2 (02:35→14:32)
[2018-06-03] MEDS: Ketorolac Tromethamine 30 MG/ML VIAL IVP SCH ×3 (05:01→12:11)
[2018-06-03] MEDS: HYDROcodone/Acetaminophen 10/325 mg Tablet PO PRN ×3 (07:49→16:52)
[2018-06-03] MEDS: Senokot S 8.6-50 MG TAB PO SCH (07:50)
[2018-06-03] MEDS: Aspirin 81 mg Enteric Coated Tablet PO SCH (07:51)
[2018-06-03] MEDS: Multivitamin W/ Minerals 1 TAB PO SCH (07:51)
[2018-06-03] MEDS: Gabapentin 300 MG CAP PO SCH ×2 (07:51→16:52)
[2018-06-03] MEDS: Calcium Carbonate + Vit D 1 TAB PO SCH (07:51)
[2018-06-03] MEDS: Ferrous Gluconate 324 MG TAB PO SCH (07:51)
[2018-06-03] MEDS: DULoxetine 60 MG CAP PO SCH (07:51)
[2018-06-03] MEDS: Scopolamine 1.5 mg/72 hour Patch TOP SCH (12:12)
[2018-06-03 17:01] VITALS: BP 107/73; TEMP 97.9
--- NOTE | 2018-06-04 11:52 | DIS ---
DATE OF ADMISSION: 06/01/2018 DATE OF DISCHARGE: 06/03/2018 PREOPERATIVE DIAGNOSIS: Left hip osteoarthritis/degenerative joint disease. POSTOPERATIVE DIAGNOSIS: Left hip osteoarthritis/degenerative joint disease. PROCEDURE: The patient underwent a left total hip replacement. HOSPITAL COURSE: Hospital stay is unremarkable. The patient was admitted to [address] they worked with staff, physical therapy, occupational therapy, and progressed quite well. B y postoperative day 2, the patient was ready to discharge home. DISCHARGE CONDITION: Good/stable. DISPOSITION: Home with home health. FOLLOWUP: Followup would be in 2-4 weeks or sooner if there are problems and/or concerns. DISCHARGE MEDICATIONS: Given with usage instructions. This is Joel Ramirez for Karan Doherty.
== END 2018-06-03 17:48 | disposition home health service (06) | DRG 470 ==
LOC: SDC 05:34 → EDSTATUS 08:30 → SJJU 10:20
PROVIDERS: ADMIT Orthopaedic Surgery; ATTEND Orthopaedic Surgery
PROC: 0SRB04Z Replacement of Left Hip Joint with Ceramic on Polyethylene Synthetic Substitute, Open Approach (ICD-10-PCS; principal; 2018-06-01)
DX: M16.12 Unilateral primary osteoarthritis, left hip (principal); Z96.641 Presence of right artificial hip joint; Z79.899 Other long term (current) drug therapy; Z88.5 Allergy status to narcotic agent; Z91.040 Latex allergy status
CPT/HCPCS: 36415; 85027; G8978-GP-CL; G8979-GP-CJ; G8987-GO-CL; G8988-GO-CJ; J0670; J1885; J2001; J2250; J2405; J2550; J2704; J3010; J3370; J3490; J7050

== ENCOUNTER 2018-12-18 14:17 | Outpatient (CLI) | payer OTHER ==
--- NOTE | 2018-12-18 15:09 | MMO ---
Bilateral MAMMO Bilat Screen [facility]. CLINICAL HISTORY: Patient is 53 years old and is seen for screening. The patient has no family history of breast cancer. The patient has no personal history of cancer. The patient has a history of bilateral Implants at age 47 - benign and bilateral Implants at age 30 - benign. VIEWS: The views performed were: bilateral craniocaudal; bilateral mediolateral oblique; bilateral Implant displaced with tomosynthesis; and cleavage view. MAMMOGRAM FINDINGS: There are scattered fibroglandular densities. There are no suspicious masses, suspicious calcifications, or new areas of architectural distortion. Intact bilateral breast implants are seen. IMPRESSION: THERE IS NO MAMMOGRAPHIC EVIDENCE OF MALIGNANCY. A ROUTINE FOLLOW-UP MAMMOGRAM IN 1 YEAR IS RECOMMENDED. THE RESULTS OF THIS EXAM WERE SENT TO THE PATIENT. ACR BI-RADS Category 1 - Negative MAMMOGRAPHY NOTE: 1. A negative mammogram report should not delay a biopsy if a dominant of clinically suspicious mass is present. 2. Approximately 10% to 15% of breast cancers are not detected by mammography. 3. Adenosis and dense breasts may obscure an underlying neoplasm.
== END 2018-12-18 14:18 | disposition home or self-care (01) ==
LOC: BICMAMMO 14:17
PROVIDERS: ATTEND Internal Medicine
DX: Z12.31 Encounter for screening mammogram for malignant neoplasm of breast (principal); Z98.82 Breast implant status
CPT/HCPCS: 77063; 77067

== ENCOUNTER 2020-05-04 11:15 | Outpatient (CLI) | payer MEDICARE, OTHER ==
--- NOTE | 2020-05-04 12:52 | RAD ---
Exam: Chest 1 view Right ribs 3 views HISTORY: Fall. Pain. FINDINGS: Chest 1 view: Normal cardiac silhouette. Pulmonary vessels and hilum are normal. Costophrenic angles are clear. No masses or consolidation. No pneumothorax or acute osseous abnormalities. Right rib series: No fracture, cortical irregularity or periosteal reaction. IMPRESSION: 1. No acute cardiopulmonary process. 2. No evidence of a right rib fracture. Transcribed Date/Time: 05/04/2020 1:08 PM
== END 2020-05-04 11:16 | disposition home or self-care (01) ==
LOC: BICRAD 11:15
PROVIDERS: ATTEND Physician Assistant
DX: R07.9 Chest pain, unspecified (principal); W19.XXXA Unspecified fall, initial encounter

== ENCOUNTER 2020-08-10 08:24 | Outpatient (CLI) | payer OTHER, MEDICARE ==
--- NOTE | 2020-08-10 09:52 | CT ---
EXAM: CT abdomen and pelvis with IV contrast PROVIDED CLINICAL HISTORY: Abdominal pain COMPARISON: None FINDINGS: The visualized lung bases are free of significant opacity. Sub-4 mm noncalcified left lower lobe nodu lar density. Changes of prior sleeve gastrectomy with small hiatal hernia. The solid abdominal organs demonstrate an unremarkable CT appearance. There is no bowel dilatation, inflammatory fat stranding, free fluid or free air apparent. There is n o evidence for appendicitis. Evaluation of the pelvis is limited due to extensive beam hardening artifact from bilateral hip arthroplasties. No regional lymph node enlargement apparent. The regional major vascular structures appear unremarkable. The osseous structures demonstrate no concerning lytic or blastic lesions. IMPRESSION: No evidence for an acute process.
== END 2020-08-10 08:25 | disposition home or self-care (01) ==
LOC: BICCT 08:24
PROVIDERS: ATTEND Internal Medicine
DX: R10.9 Unspecified abdominal pain (principal)
CPT/HCPCS: 74177

== ENCOUNTER 2021-01-08 08:55 | Outpatient (CLI) | payer OTHER | END 2021-01-08 08:56 | disposition home or self-care (01) | LOC: BICRAD 08:55 | PROVIDERS: ATTEND Internal Medicine | DX: M54.5 Low back pain (principal); M47.816 Spondylosis without myelopathy or radiculopathy, lumbar region; M41.9 Scoliosis, unspecified | CPT/HCPCS: 72100; 72202 ==

== ENCOUNTER 2021-10-19 11:01 | Outpatient (CLI) | payer MEDICARE | END 2021-10-19 11:02 | disposition home or self-care (01) | LOC: BICMAMMO 11:01 | PROVIDERS: ATTEND Internal Medicine Endocrinology, Diabetes & Metabolism | DX: Z13.820 Encounter for screening for osteoporosis (principal); Z87.81 Personal history of (healed) traumatic fracture | CPT/HCPCS: 77080 ==

== ENCOUNTER 2022-07-04 09:45 | Outpatient (CLI) | payer OTHER | END 2022-07-04 09:46 | disposition home or self-care (01) | LOC: BICMAMMO 09:45 | PROVIDERS: ATTEND Internal Medicine | DX: Z12.31 Encounter for screening mammogram for malignant neoplasm of breast (principal); Z98.82 Breast implant status | CPT/HCPCS: 77063; 77067 ==

== ENCOUNTER 2025-07-11 11:01 | Outpatient (CLI) | payer OTHER | END 2025-07-11 11:02 | disposition home or self-care (01) | LOC: BICRAD 11:01 | PROVIDERS: ATTEND Internal Medicine Rheumatology | DX: M05.79 Rheumatoid arthritis with rheumatoid factor of multiple sites without organ or systems involvement (principal); M19.041 Primary osteoarthritis, right hand ==